=== PATIENT | female | born 1965 | race Caucasian/White ===

== ENCOUNTER 2021-03-01 08:15 | Emergency (ER) | payer OTHER ==
--- NOTE | 2021-03-01 10:14 | Event Note ---
ED Screening Note ED Screening Note: Chief complaint: Fever HPI this is a 55-year-old female presents from [facility] without any physical complaints. I did briefly evaluate patient. She was referred to emergency department for elevated temperature. Fever determined to be 104 F. Patient was afebrile with EMS. Patient is afebrile here. Patient does not require any further care. Medical screening exam performed and complete. Patient is nontoxic-appearing. She ambulates without difficulty. This is a well-appearing female without evidence of acute medical emergency. She does not have any symptoms.. She is medically clear for psychiatric care.
== END 2021-03-01 12:00 | disposition home or self-care (01) ==
LOC: ED 08:15
DX: R50.9 Fever, unspecified (principal); Z53.21 Procedure and treatment not carried out due to patient leaving prior to being seen by health care provider